=== PATIENT | female | born 2000 | race Caucasian/White ===

== ENCOUNTER 2022-02-16 03:32 | Emergency (ER) | payer OTHER, SELFPAY ==
[2022-02-16 03:33] VITALS: BP 112/61; PULSE 68; RESP 16; TEMP 36.7; O2SAT 99; BMI 21.2
--- NOTE | 2022-02-16 04:16 | [facility].EDSKAF ---
Discharge Plan Disposition Patient Disposition: Home, Self-Care Prescriptions Prescriptions: New cephalexin [cephalexin] 500 mg capsule 500 mg PO TID Qty: 30 0RF clindamycin HCl 300 mg capsule 300 mg PO TID Qty: 30 0RF Referrals Follow up/Referrals: Provider,Referral, [Primary Care Provider] - See instructions Clinical Impressions Clinical Impression: Paronychia Instructions Patient Instructions: DI for Paronychia Discharge ED Provider: Enzo Rider Skin/Abscess/FB HPI General Chief complaint: Skin/Abscess/Foreign Body Stated complaint: Left big toe pain, swollen, red, hot to touch Time Seen by Provider: 02/16/22 04:17 Mode of Arrival: Ambulatory Source of Information: Patient, Significant Other and Medical Record Limitations: No Limitations Description of Symptoms (Recalled from ER Triage Doc. by RN): LEFT BIG TOE PAIN. PT STATES SHE CLIPPED TOENAIL TOO CLOSE 3 DAYS AGO. TODAY PT PRESENTS WITH RED SWOLLEN. History of Present Illness HPI narrative: red swollen lt great toe progressive over the last 3 days complaint: other (paronychia changes lt great toe ) Onset (ago): day(s) Tetanus up to date: yes Location: L foot Severity: moderate Quality: stabbing Consistency: intermittent Context: other (trimming nails ) Associated symptoms: denies other symptoms Related Data Previous Rx's Medication Instructions Recorded cephalexin 500 mg capsule 500 mg PO TID #30 caps 02/16/22 clindamycin HCl 300 mg capsule 300 mg PO TID #30 caps 02/16/22 Allergies Allergy/AdvReac Type Severity Reaction Status Date / Time No Known Allergies Allergy Verified 10/23/18 13:16 [facility] Medical History (Updated 02/16/22 @ 04:27 by Enzo Rider MD) History of anemia Social History (Updated 02/16/22 @ 03:51 by Leslie Calero RN) Smoking Status: Current every day smoker tobacco type: cigarettes packs per day: 1 alcohol intake: never current occupational status: employed Travel in the last 8 weeks: None ROS Obtained: Yes All systems reviewed & no additional complaints except as documented Constitutional Constitutional: Denies fever(s) Integumentary/Breasts Skin/Breast: Reports as per HPI and Reports redness Physical Exam General General appearance: alert Head Head exam: normocephalic Eye Eye exam: Present PERRL and EOMI ENT ENT exam: Present mucous membranes moist Neck Neck exam: Present full ROM and trachea midline Respiratory Respiratory exam: Absent respiratory distress Cardiovascular Cardiovascular exam: Present regular rate Abdominal Exam Abdominal exam: Present soft Extremities Exam Extremities exam: Present full ROM and other (early paronychia lt great toe ) Neurological Exam Neurological exam: Present alert and CN II-XII intact Psychiatric Psychiatric exam: Present normal affect Skin Skin exam: Present other (paronychia lt great toe ) Medical Decision Making Medical Records Medical records reviewed: Yes I reviewed the patient's medical records. Yohannes Inquiry Pt receiving controlled substance: No Vital Signs: 02/16/22 03:33 Temperature 98.1 F Temperature Source Oral Pulse Rate [Left Radial] 68 Respiratory Rate 16 Blood Pressure [Right Arm] 112/61 Blood Pressure Mean [Right Arm] 78 Blood Pressure Source [Right Arm] Automatic Cuff 02 Sat by Pulse Oximetry 99 Oxygen Delivery Method Room Air Lab Data Lab results reviewed: Yes I reviewed the patient's lab results. Medical Decision Narrative: early paronychia lt great toe - discussed options with pt - will treat medically at this time Critical Care Time Critical Care Time Critical Care Time: No Attestation: On 02/16/22, the high probability of a clinically significant, sudden or life threatening deterioration of the following system(s) required my full and direct attention, intervention and personal management. The time I documented below is in addition to time spent performing reported
[2022-02-16 04:30] VITALS: BP 118/73; PULSE 83; RESP 17; TEMP 36.6; O2SAT 98
== END 2022-02-16 04:31 | disposition home or self-care (01) ==
PROVIDERS: Emergency Provider Emergency Medicine
DX: L03.032 Cellulitis of left toe
CPT/HCPCS: 99283